=== PATIENT | male | born 1950 | race Caucasian/White ===

== ENCOUNTER 2020-06-01 07:45 | Emergency (ER) | payer MEDICARE, BC ==
[~2020-06-01] VITALS: Ht 175.3 cm; Wt 90.4 kg
[2020-06-01] MEDS ORDERED: dexamethasone 4mg/ml inj IM ONE (08:00)
[2020-06-01] MEDS ORDERED: triamcinolone acetonide 40mg/ml inj IM ONE (08:00)
[2020-06-01 08:23] VITALS: BP 138/80
== END 2020-06-01 08:26 | disposition home or self-care (01) ==
LOC: ER 07:46
DX: L23.7 Allergic contact dermatitis due to plants, except food (principal)
CPT/HCPCS: 96372; 99284; J1100; J3301